=== PATIENT | male | born 1975 | race Caucasian/White ===

== ENCOUNTER 2019-04-14 14:49 | Emergency (ER) | payer SELFPAY ==
[~2019-04-14] VITALS: Ht 180.3 cm; Wt 98.9 kg
[2019-04-14] MEDS ORDERED: NORCO 5-325 TA1 EACH PO (15:07)
[2019-04-14] MEDS ORDERED: CIPRO500 MG PO (15:07)
[2019-04-14] MEDS ORDERED: FLAGYL500 MG PO (15:07)
[2019-04-14] MEDS ORDERED: ZYRTEC10 MG PO (15:09)
== END 2019-04-14 15:19 | disposition home or self-care (01) ==
LOC: ED 14:49
DX: K57.92 Diverticulitis of intestine, part unspecified, without perforation or abscess without bleeding (principal)
CPT/HCPCS: 99283